=== PATIENT | male | born 1975 | race Two or more races ===

== ENCOUNTER 2020-09-09 12:44 | Outpatient (REF) | payer MEDICAID, SELFPAY ==
--- NOTE | 2020-09-09 | US_ITS ---
EXAMINATION: US SOFT TISSUE HEAD/NECK CLINICAL INFORMATION: Cervicalgia. Small palpable lump scalp right vertex. COMPARISON: CTA head 02/14/2020, CT brain noncontrast 06/08/2014, 03/20/2009. TECHNIQUE: Real-time linear ultrasound is targeted to the, area of clinical concern as noted by patient. This is in the vertex, just right of midline. Grayscale imaging and color Doppler are performed. FINDINGS: Ultrasound demonstrates small anechoic cystic subgaleal lesion at site of palpable concern right parietal vertex with overall dimensions 0.2 x 0.9 x 1.0 cm. There is no solid component or associated color flow. No hyperemia. No other cystic or solid mass is demonstrated. No visible bony exostosis. Findings questionably present on prior head imaging exams without significant change in size. US/US soft tiss head and/or neck IMPRESSION: Small benign-appearing anechoic subgaleal cystic lesion right vertex measuring only 0.2 x 0.9 x 1.0 cm. Finding may be chronic and is of doubtful significance.
== END 2020-09-09 12:45 | disposition home or self-care (01) ==
LOC: HO.US 12:44
PROVIDERS: PCP Registered Nurse; Visit Provider Registered Nurse
DX: M54.2 Cervicalgia (principal); R22.0 Localized swelling, mass and lump, head; R51.9 Headache, unspecified
CPT/HCPCS: 76536

== ENCOUNTER 2021-10-15 17:34 | Emergency (ER) | payer MEDICAID, SELFPAY ==
--- NOTE | ~2021-10-15 | CT_ITS ---
EXAMINATION: CT ABDOMEN AND PELVIS WITHOUT CONTRAST CLINICAL INFORMATION: Right lower rib and flank pain, rule out kidney stone COMPARISON: None TECHNIQUE: Multidetector volumetric imaging was performed from the superior aspect of the liver through the pubic symphysis. Sagittal and coronal reformatted images were obtained on the technologist's workstation. This CT examination was performed using dose optimization techniques as appropriate, variously including the following: *Automated exposure control *Adjustment of mA and/or kV according to patient size (this includes techniques or standardized protocols for targeted exams where dose is matched to indication/reason for exam; i.e. extremities or head) *Use of iterative reconstruction technique DLP: 540 mGy-cm FINDINGS: LUNG BASES: The visualized lung bases are unremarkable. LIVER, GALLBLADDER, AND BILIARY TREE: The liver is normal in size, shape, and attenuation. No focal hepatic lesion or biliary ductal dilatation is present. The gallbladder contains inhomogeneity and some calcifications consistent with cholelithiasis. The gallbladder is otherwise unremarkable with no evidence of gallbladder wall thickening, or obvious pericholecystic inflammatory changes. PANCREAS: Unremarkable. SPLEEN: Unremarkable. ADRENAL GLANDS: Unremarkable. KIDNEYS AND URETERS: The kidneys are normal in size, shape, and attenuation. No hydronephrosis, hydroureter, or calculi seen. No perinephric stranding. BLADDER: Unremarkable. GASTROINTESTINAL TRACT: The small and large bowel are unremarkable. The appendix is unremarkable. ABDOMINAL WALL: No significant hernia is appreciated. LYMPH NODES: Normal. VASCULAR: Unremarkable. PELVIC VISCERA: Unremarkable. OSSEOUS STRUCTURES: Unremarkable. No rib fractures are seen in the visualized ribs. CT/CT abdomen pelvis wo con IMPRESSION: Probable cholelithiasis without evidence of cholecystitis. Ultrasound would be better characterization. No renal calculi or hydronephrosis is seen Fleischner guidelines were followed.
[2021-10-15 17:40] VITALS: PULSE 98; RESP 18; TEMP 36.8; O2SAT 96; BMI 28.3
[2021-10-15 18:00] VITALS: BP 144/96; PULSE 83; RESP 18; O2SAT 96
--- NOTE | 2021-10-15 18:27 | ED_ITS ---
HPI - Male Genitourinary General Chief complaint: Urogenital-Male Stated complaint: rib pain Time Seen by Provider: 10/15/21 17:54 Source: patient Mode of arrival: ambulatory Limitations: language barrier ([place] speaking only) History of Present Illness HPI Narrative: 46-year-old female who presents emergency department for evaluation of right flank right posterior chest plain. He states that when he woke up this morning he turned and when he moved he felt pain in his right flank and right posterior chest. He describes the pain as a squeezing pain which is constant and is worse with movement. He states the pain is 9/10. He denied fever, chills, nausea, vomiting, shortness of breath or dyspnea on exertion, frequency, urgency or dysuria. He did not take any medications prior to coming to the emergency department. Related Data Allergies Allergy/AdvReac Type Severity Reaction Status Date / Time adhesive tape [ADHESIVE TAPE] Allergy Mild RASH Unverified 04/29/20 17:23 Review of Systems Review of Systems: Yes all other systems are reviewed and are negative [facility] Past Medical History [facility] Narrative: Past medical history: Hypertension. Past surgical history: None. Social history: He does smoke cigarettes. He denies alcohol use. He does use cocaine, he states that smokes crack cocaine. Social History Social History Advance Directives: No Advance Directives Information Provided: No Physical Exam Vital Signs: Vital Signs: Last Vital Signs Temp 98.3 F 10/15/21 17:40 Pulse 83 10/15/21 18:00 Resp 18 10/15/21 18:00 BP 144/96 H 10/15/21 18:00 Pulse Ox 96 10/15/21 18:00 BMI result Body Mass Index 28.3 Const: General: cooperative and no acute distress Orientation /consciousness: oriented to person and oriented to place Limitations: no limitations HENMT: Head: Yes normal to inspection, Yes normocephalic and Yes atraumatic Ears: external ears normal General nose exam: Normal external nose present Face and sinus: Yes normal facial exam Mouth: Normal oral and palatal mucosa present Throat: Yes posterior oropharynx normal Eyes: General: appearance normal, both eyes and all related structures Pupils: Equal, round and reactive pupils present Neck: Neck: Yes normal visual inspection, Yes no lymphadenopathy, Yes trachea midline and Yes supple Chest: Chest palpation & inspection: normal inspection of the chest and normal palpation of entire chest wall Resp: Effort & Inspection: normal respiratory effort and able to speak in complete sentences Auscultation: clear to auscultation bilaterally Cardio: Rate: regular rate Rhythm: regular rhythm Heart sounds: S1 normal heart sound present, S2 normal heart sound present and no murmurs GI: Inspection: Yes normal to inspection Palpation (GI): Soft to palpation, nontender and no guarding Auscultation: normal bowel sounds : General: Yes no CVA tenderness Back/Spine/Pelvis: Back: no CVA tenderness Skin: General skin exam: no rashes or lesions noted Neuro: General: oriented to person and oriented to place Cranial nerves: Yes CN's II-XII intact bilaterally and Yes Equal, round and reactive pupils present Cognition (Neuro): normal cognition Motor exam (neuro): 5/5 motor strength present throughout Extrem: General: Yes normal to inspection Psych: Appearance: grossly normal Speech and movement: Normal speech and movement present Affect: normal affect Attitude: cooperative Thought process: Normal thought process present Thought content: Normal thought content present Course Course Course Narrative: 46-year-old male who presents emergency department for evaluation of right posterior chest and right flank pain started this morning. The pain is a constant squeezing pain which is worse with movement. He states the pain is 9/10. He denied any other associated symptoms. Vital signs revealed an elevated blood pressure of 144/96 otherwise were unremarkable. The patient's physical examination was unremarkable, he did not have any palpable tenderness over his right posterior chest or any CVA tenderness. This time a concerned the patient may have a renal stone is the cause of his pain. Laboratory evaluation was ordered. Patient was also ordered to get a CT of the abdomen pelvis without IV contrast. He was treated with Toradol 15 mg IV and Zofran 4 mg IV. He is also ordered to get normal saline IV x1 L. 2141: Laboratory evaluation was unremarkable. Urinalysis was negative. CT scan of the abdomen did reveal gallstones but no evidence of renal calculi or ureteral calculi. Patient does feel better after getting Toradol. Patient was advised to take ibuprofen Tylenol for his pain. Patient be discharged home. MDM - Male Genitourinary Lab Data Result diagrams: 10/15/21 18:49 10/15/21 18:48 Labs: Lab Results 10/15/21 10/15/21 10/15/21 Range/Units 18:48 18:49 20:14 WBC 8.6 (4.8-10.8) X10*3/uL RBC 5.06 (4.60-5.80) X10*6/uL Hgb 14.6 (14.0-18.0) g/dl Hct 43.2 (42.0-52.0) % MCV 85.4 (80.0-98.0) fL MCH 28.9 (27.0-33.0) pg MCHC 33.8 (31.0-36.0) g/dl RDW 12.2 (11.0-16.0) % Plt Count 311 (160-400) X10*3/uL MPV 8.7 L (9.4-12.4) fL Immature Gran % (Auto) 0.2 (0.0-0.4) % Neut % (Auto) 61.6 (45-73) % Lymph % (Auto) 29.0 (20-40) % [place] % (Auto) 6.9 (2-11) % Eos % (Auto) 2.0 (0-4) % Baso % (Auto) 0.3 (0-2) % Lymph # (Auto) 2.5 (1.2-4.9) X10*3/uL [place] # (Auto) 0.6 (0.1-1.2) X10*3/uL Eos # (Auto) 0.2 (0.0-0.4) X10*3/uL Baso # (Auto) 0.0 (0.0-0.2) X10*3/uL Abs Immat Gran (auto) 0.02 (0.00-0.03) X10*3/uL Absolute Neuts (auto) 5.3 (2.0-8.3) x10*3/uL Absolute Nucleated RBC 0.000 (0.0-0.012) X10*3/uL Nucleated RBC % (auto) 0.0 (0.0-0.2) /100WBC Sodium 139 (135-145) mmol/L Potassium 3.3 (3.3-5.1) mmol/L Chloride 98 (96-108) mmol/L Carbon Dioxide 35 H (22-29) mmol/L Anion Gap 9 L (12-20) BUN 13 (9-16) mg/dL Creatinine 1.04 (0.5-1.4) mg/dL Estim Creat Clear Calc 84.1 Estimated GFR > 60 Random Glucose 112 (60-115) mg/dL Calcium 10.1 (8.4-10.2) mg/dL Total Bilirubin 0.5 (0.0-1.0) mg/dL AST 19 (5-37) U/L ALT 16 (0-40) U/L Alkaline Phosphatase 59 (39-117) U/L Total Protein 7.3 (6.5-8.0) g/dL Albumin 4.5 (3.5-5.0) g/dL Lipase 42 (8-78) U/L Urine Color YELLOW Urine Appearance CLEAR Urine pH 8.0 (5.0-8.0) Ur Specific [place] 1.015 (1.005-1.025) Urine Protein NEG (NEG-TRACE) MG/DL Urine Glucose (UA) NEG (NEG) MG/DL Urine Ketones NEG (NEG) MG/DL Urine Blood NEG (NEG) Urine Nitrite NEG (NEG) Ur Leukocyte Esterase NEG (NEG) Discharge Plan Discharge Clinical Impression: Chest pain Qualifiers: Chest pain type: unspecified Qualified Code(s): R07.9 - Chest pain, unspecified Abdominal pain Qualifiers: Abdominal location: unspecified location Qualified Code(s): R10.9 - Unspecified abdominal pain Patient Disposition: Home, Self-Care Instructions: Chest Wall Pain (ED) Additional Instructions: Your blood work was normal. Your urine was unremarkable. The CT scan of your abdomen and pelvis did not reveal any kidney stones in your kidneys look normal. You may have stones in her gallbladder but this is not causing your pain. Your treated with an anti-inflammatory medication, Toradol. This improved your pain. Take ibuprofen 200 mg pills, 3 pills every 6 hours as needed for pain. Take Tylenol (acetaminophen) 500 mg pills, 2 pills every 4 to 6 hours as needed for pain. Follow-up with your doctor in 2 days. Please return to the emergency department if your symptoms get worse or if you develop any symptoms that are concerning to you.
[2021-10-15 18:54] LABS: MANUAL DIFF FLAG NO
[2021-10-15 19:03] LABS: Basophils Percent Auto 0.3 % (0-2); Eosinophils Absolute Auto 0.2 X10*3/uL (0.0-0.4); Hematocrit 43.2 % (42.0-52.0); Hemoglobin 14.6 g/dl (14.0-18.0); Imm Gran Abs Auto 0.02 X10*3/uL (0.00-0.03); Imm Gran Pct Auto 0.2 % (0.0-0.4); Lymphocytes Absolute Auto 2.5 X10*3/uL (1.2-4.9); Mean Corpuscular HGB Conc 33.8 g/dl (31.0-36.0); Mean Corpuscular Hemoglobin 28.9 pg (27.0-33.0); Mean Corpuscular Volume 85.4 fL (80.0-98.0); Mean Platelet Volume 8.7 fL (9.4-12.4); Monocytes Absolute Auto 0.6 X10*3/uL (0.1-1.2); Monocytes Percent Auto 6.9 % (2-11); Neutrophils Absolute Auto 5.3 x10*3/uL (2.0-8.3); Neutrophils Percent Auto 61.6 % (45-73); Platelet Count 311 X10*3/uL (160-400); Red Blood Count 5.06 X10*6/uL (4.60-5.80); Red Cell Distribution Width 12.2 % (11.0-16.0); White Blood Count 8.6 X10*3/uL (4.8-10.8)
[2021-10-15 19:12] LABS: Alanine Aminotransferase 16 U/L (0-40); Albumin Level 4.5 g/dL (3.5-5.0); Alkaline Phosphatase 59 U/L (39-117); Anion Gap 9 (12-20); Aspartate Amino Transferase 19 U/L (5-37); Bilirubin Total 0.5 mg/dL (0.0-1.0); Blood Urea Nitrogen 13 mg/dL (9-16); Calcium 10.1 mg/dL (8.4-10.2); Carbon Dioxide 35 mmol/L (22-29); Chloride 98 mmol/L (96-108); Creatinine Clr Calc Pharmacy 84.1; Estimated Glomerular Filt Rate > 60; Glucose Random 112 mg/dL (60-115); Lipase 42 U/L (8-78); Potassium 3.3 mmol/L (3.3-5.1); Sodium 139 mmol/L (135-145); Total Protein 7.3 g/dL (6.5-8.0)
[2021-10-15] MEDS: 0.9 % Sodium Chloride 1,000 ML 999 ML IV (20:08)
[2021-10-15] MEDS: ondansetron HCL 4 MG/2 ML VIAL IVPUSH (20:11)
[2021-10-15] MEDS: Ketorolac Tromethamine 15 MG/ML VIAL IVPUSH (20:11)
[2021-10-15 20:24] LABS: Appearance Urine CLEAR; Color Urine YELLOW; Glucose Urine UA NEG (NEG); Leukocyte Esterase Urine NEG (NEG); Nitrite Urine NEG (NEG); Specific Gravity - Urine 1.015 (1.005-1.025); Urine Blood NEG (NEG); Urine Ketones NEG (NEG); Urine Protein NEG (NEG-TRACE)
[2021-10-15 21:48] VITALS: BP 149/101; PULSE 84; RESP 20; TEMP 36.9; O2SAT 97
== END 2021-10-15 22:00 | disposition home or self-care (01) ==
PROVIDERS: Emergency Provider Emergency Medicine Emergency Medical Services
DX: R07.9 Chest pain, unspecified (principal); R10.9 Unspecified abdominal pain; I10 Essential (primary) hypertension; F17.200 Nicotine dependence, unspecified, uncomplicated
CPT/HCPCS: 36415; 74176; 80053; 81003; 83690; 85025; 96361; 96374; 96375; 99284; J1885; J2405

== ENCOUNTER → 2022-02-02 10:25 | Outpatient (BNVA) | payer MEDICAID, SELFPAY | PROVIDERS: Visit Provider Surgery | DX: L72.11 Pilar cyst (principal) | CPT/HCPCS: 99202 ==